=== PATIENT | female | born 1940 | race Caucasian/White ===

== ENCOUNTER 2019-07-29 22:49 | Inpatient (IN) | payer OTHER, MEDICAID ==
[~2019-07-29] VITALS: Ht 147.3 cm; Wt 83.6 kg
[~2019-07-29 22:49] MED LIST: ANTIVERT25 MG PO; APAP500 PO; BENICAR40 MG PO; CARVEDILOL25 MG PO; CLONIDINE0.1; DONEPEZIL HCL10 MG PO; Duoneb 2.5-0.5 Mg/3; FLONASE 0.05%50 MCG NASAL; ICAPS TABLET1 EACH PO; LASIX 20 MG TAB20 MG PO; LEVAQUIN 250 M250 MG PO; LEXAPRO20 MG PO; LIPITOR10 MG PO; LOPRESSOR50 PO; METOPROLOL SUCC25 M1 PO; NORVASC2.5 MG PO; OMEPRAZOLE40 MG; OMEPRAZOLE40 MG PO; PAXIL10 MG; PREDNISONE 10 M10 MG PO; PREDNISONE50 MG PO; PROTONIX 20 MG20 M1 PO; PROTONIX40 M1 PO; TESSALON PERLE100 MG PO; TRANSDERM-SCO1 PATC1 TD; TRAZODONE 150150 M1 PO; TRAZODONE HCL100 MG PO; XANAX1 MG PO; ZANTAC 150MG T150 MG PO
[2019-07-29 22:59] VITALS: BP 171/67
[2019-07-29 23:28] LABS: ABSOLUTE BASOPHILS 0.1 thou/uL (0.0-0.2); ABSOLUTE EOSINOPHILS 0.3 thou/uL (0.0-0.7); ABSOLUTE LYMPHOCYTES 2.9 thou/uL (0.8-5.3); ABSOLUTE MONOCYTES 1.1 thou/uL (0.0-1.2); BASOPHILS 0.5 %; EOSINOPHILS 2.5 %; HEMATOCRIT 34.2 % (37.0-47.0); HEMOGLOBIN 11.8 gm/dL (12.0-15.0); LYMPHOCYTES 28.1 %; MCH 33.2 pg (26.0-34.0); MCHC 34.6 g/dL (28.0-37.0); MCV 95.8 fL (80.0-100.0); MONOCYTES 10.5 %; NUCLEATED RBCS 0 /100WBC; PLATELET COUNT* 235 thou/uL (150-400); POLYS 58.4 %; RBC 3.57 mil/uL (4.20-5.00); WBC 10.3 thou/uL (4.0-11.0)
[2019-07-29 23:31] LABS: CALCIUM 8.7 mg/dL (8.5-10.1); CREATININE 1.2 mg/dL (0.6-1.3); POTASSIUM 3.3 mmol/L (3.5-5.1)
[2019-07-29 23:34] LABS: PROTIME 10.2 Seconds (9.20-11.50)
[2019-07-29 23:41] LABS: ALBUMIN 3.3 g/dL (3.4-5.0); TOTAL BILIRUBIN 0.2 mg/dL (<0.1-1.0); TOTAL PROTEIN 6.6 g/dL (6.4-8.2)
[2019-07-29 23:57] LABS: URINE BILIRUBIN NEGATIVE (Negative); URINE BLOOD NEGATIVE (Negative); URINE CLARITY CLEAR; URINE COLOR STRAW; URINE GLUCOSE-RANDOM NEGATIVE (Negative); URINE KETONES NEGATIVE (Negative); URINE LEUKOCYTES-REFLEX NEGATIVE (Negative); URINE NITRITE-REFLEX NEGATIVE (Negative); URINE PROTEIN NEGATIVE (Negative); URINE SPECIFIC GRAVITY <= 1.005 (1.005-1.030); URINE UROBILINOGEN 0.2 E.U./dl (0.2-1.0)
[2019-07-30 00:47] LABS: INFLUENZA A ANTIGEN Negative (Negative); INFLUENZA B ANTIGEN Negative (Negative)
[2019-07-30 03:16] VITALS: BP 142/57
[2019-07-30 04:00] VITALS: BP 142/58
[2019-07-30 07:51] VITALS: BP 133/59
--- NOTE | 2019-07-30 07:55 | NUR ---
PT RECIEVED FROM ED. ALERT AND ORIENTED X4. PASSED BEDSIDE SWALLOW TEST. DENIES PAIN AND SOB. CALL LIGHT WITHIN REACH AND BED IN LOW POSITION. HOURLY ROUNDING DONE FOR PT SAFETY.
[2019-07-30 08:00] VITALS: BP 133/59
[2019-07-30 11:06] LABS: CHOLESTEROL 132 mg/dL (<200); HDL CHOLESTEROL 66 mg/dL (>40); LDL CHOLESTEROL 57 mg/dL (<100); TRIGLYCERIDE 46 mg/dL (<150); VLDL 9 mg/dL (<40)
[2019-07-30 11:07] LABS: SERUM ASSESSMENT Clear
[2019-07-30 12:00] VITALS: BP 132/58
[2019-07-30] MEDS ORDERED: CALCIUM500 MG PO (14:39)
[2019-07-30] MEDS ORDERED: CELEXA 20 MG TA20 MG PO (14:40)
[2019-07-30] MEDS ORDERED: LORATIDINE 10 M10 M1 PO (14:42)
[2019-07-30] MEDS ORDERED: KLOR-CON M2020 MEQ PO (14:43)
[2019-07-30] MEDS ORDERED: SEROQUEL 100 M100 M1 PO (14:44)
[2019-07-30] MEDS ORDERED: SEROQUEL XR 30300 M1 PO (14:46)
[2019-07-30] MEDS ORDERED: PROCTOSOL-HC28.35 GM TOP (14:47)
[2019-07-30 16:00] VITALS: BP 129/68
--- NOTE | 2019-07-30 18:01 | NUR ---
ASSUMED PT CARE REPORT RECEIVED FROM NURSE PT IS AOX4. 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 CALL LIGHT AT REACH. MRI/AND LEG US DONE THIS AM. SEE CHART FOR RESULT. PT HAS NO COMPLAINT. PATIENT WENT FOR A WALK ON THR FLOOR HALLWAY ACCOMPANIED BY THIS NURSE. PT HAS USED THE RESTROOOM MULTIPLE TIMES THIS DAY. NO FURTHER COMPLAINT. CALL LIGHT AT REACH. WILL CONITNUE TO MONITOR
[2019-07-31] VITALS (7 sets, daily range): BP systolic 126–153; BP diastolic 58–66
[2019-07-31 04:09] LABS: GLYCOHEMOGLOBIN (HGB A1C) 5.5 % (4.8-5.6)
[2019-07-31 05:06] LABS: HEMATOCRIT 34.4 % (37.0-47.0); HEMOGLOBIN 11.9 gm/dL (12.0-15.0); MCH 33.2 pg (26.0-34.0); MCHC 34.5 g/dL (28.0-37.0); MCV 96.3 fL (80.0-100.0); MPV 7.8 fl. (7.2-11.1); RBC 3.58 mil/uL (4.20-5.00); RDW-CV 14.1 % (10.5-14.5); WBC 6.7 thou/uL (4.0-11.0)
[2019-07-31 05:27] LABS: ALBUMIN 2.9 g/dL (3.4-5.0); CALCIUM 8.7 mg/dL (8.5-10.1); CREATININE 1.3 mg/dL (0.6-1.3); MAGNESIUM 2.2 mg/dL (1.8-2.4); POTASSIUM 4.1 mmol/L (3.5-5.1); TOTAL BILIRUBIN 0.3 mg/dL (<0.1-1.0); TOTAL PROTEIN 6.1 g/dL (6.4-8.2)
--- NOTE | 2019-07-31 05:49 | NUR ---
PT CARE ASSUMED AT 1930. SAT MAINTAINED IN RA. ALERT AND ORIENTED X4 SEEMS FORGETFUL AT TIMES. CALL LIGHT WITHIN REACH AND BED IN LOW POSITION. C/O PAIN, MEDICATION GIVEN PER EMAR. HOURLY ROUNDING DONE FOR PT SAFETY.
--- NOTE | 2019-07-31 10:53 | NUR ---
MET WITH PT AND SPOKE WITH BECKYR/MILY OVER THE PHONE. PT LIVES IN ASSISTED LIVING AT [facility] IN [place]. SPOKE WITH JUANCARLOS THERE AND THEY WILL ACCEPT BACK. SHE STATED PT DOES WELL, AMBULATES WITHOUT DEVICE AND IS ABLE TO DO HER OWN ADLS. THEY WILL NEED REPORT CALLED AND A CHART COPY AT [place]. DTR AWARE PT MAY GO HOME SOON, SHE WILL TRANSPORT. PT STATES FEELING BACK TO HERSELF TODAY, DENIES NEEDS. DTR HAS WALKER PT CAN USE IF NEEDED MILY [phone] [facility] [phone]
[2019-07-31] MEDS ORDERED: ASPIRIN325 PO (12:31)
--- NOTE | 2019-07-31 12:49 | EKG ---
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: : 1940 Requested By: Kika Reed Order Number: [id number] MD: Sotero Wills Measurements Intervals [place] Rate: 67 P: 39 CO: 58 QRS: -9 QRSD: 112 T: 18 QT: 443 QTc: 468 Interpretive Statements Sinus rhythm Short CO interval Borderline intraventricular conduction delay Low voltage, precordial leads Abnormal R-wave progression, early transition Borderline T abnormalities, anterior leads Baseline wander in lead(s) V1,V4,V5 Compared to ECG 07/10/2016 12:36:40 Short CO interval now present Low QRS voltage now present T-wave abnormality now present Electronically Signed On 07-31-2019 12:48:58 [employer] by Sotero Wills [email or web address] <ELECTRONICALLY SIGNED> By: Sotero Wills MD, [facility] 07/31/19 1248 [id number] 225 Sotero Wills MD, [facility] /EPI
--- NOTE | 2019-07-31 13:40 | 2DMMODE ---
[place] [address] 2 D/M-MODE ECHOCARDIOGRAM Name: ZULMA BLAIR Room: [address] IN .R.#: [id number] Admission: 07/30/19 Attend Phys: Wang Carrillo, Discharge: Date of : 44 Date of Service: 07/31/19 1339 Report #: [id number] THIS REPORT FOR: //name// APPROVED REPORT Study performed: 07/31/2019 10:12:26 EXAM: Comprehensive 2D, Doppler, and color-flow Echocardiogram Patient Location: Bedside BSA: 1.73 HR: 70 bpm BP: 134/66 mmHg Other Information Study Quality: Fair Technically limited study due to body habitus. Indications Possible Stroke Echo Enhancing Agent Indication: Rule out Shunt Agent(s) / Amount(s) Used: Agitated Saline cc 2D Dimensions IVSd: 10.48 (7-11mm) LVOT Diam: 19.74 (18-24mm) LVDd: 40.01 mm PWd: 9.80 (7-11mm) Ascending Ao: 26.79 (22-36mm) LVDs: 25.88 (25-40mm) Aortic Root: 25.64 mm Volumes Left Atrial Volume (Systole) LA ESV Index: 18.40 mL/m2 Aortic Valve AoV Peak Samm.: 0.71 m/s AO Peak Gr.: 2.04 mmHg LVOT Max P.13 mmHg AO Mean Gr.: 1.31 mmHg LVOT Mean P.40 mmHg LVOT Max V: 0.73 m/s AO V2 VTI: 17.07 cm LVOT Mean V: 0.57 m/s ERI (VTI): 3.11 cm2 LVOT V1 VTI: 17.32 [place] [address] 2 D/M-MODE ECHOCARDIOGRAM Name: ZULMA BLAIR Room: [address] IN [facility].#: [id number] Admission: 07/30/19 Attend Phys: Wang Carrillo, Discharge: Date of : 44 Date of Service: 07/31/19 1339 Report #: [id number] E/A Ratio: 1.09 MV Decel. Time: 410.24 ms MV E Max Samm.: 0.51 m/s MV PHT: 118.97 ms MVA (PHT): 1.85 cm2 TDI E/Lateral E': 4.64 E/Medial E': 6.38 Medial E' Samm.: 0.08 m/s Lateral E' Samm.: 0.11 m/s Pulmonary Valve PV Peak Samm.: 0.68 m/s PV Peak Gr.: 1.84 mmHg Tricuspid Valve RAP Estimate: 5.00 mmHg TR Peak Gr.: 27.54 mmHg RVSP: 32.40 mmHg PA Pressure: 32.40 mmHg Left Ventricle The left ventricle is normal size. There is normal LV segmental wall motion. There is normal left ventricular wall thickness. Left ventricular systolic function is normal. The left ventricular ejection fraction is within the normal range. LVEF is 60-65%. Right Ventricle The right ventricle is normal size. The right ventricular systolic function is normal. Atria The left atrium size is normal. Injection of bubbles documented no interatrial shunt. The right atrium size is normal. Aortic Valve The aortic valve is normal in structure. Trace aortic regurgitation. There is no aortic valvular stenosis. Mitral Valve The mitral valve is normal in structure. Trace mitral regurgitation. No evidence of mitral valve stenosis. Tricuspid Valve The tricuspid valve is normal in structure. Trace tricuspid regurgitation. estimated pa pressure 35 mm [place] [address] 2 D/M-MODE ECHOCARDIOGRAM Name: ZULMA BLAIR Room: [address] IN [facility]#: [id number] Admission: 07/30/19 Attend Phys: Wang Carrillo, Discharge: Date of : 44 Date of Service: 07/31/19 1339 Report #: [id number] The pulmonary valve is normal in structure. There is no pulmonic valvular regurgitation. Great Vessels The aortic root is normal in size. IVC is normal in size and collapses >50% with inspiration. Pericardium There is no pericardial effusion. <Conclusion> LVEF is 60-65%. Injection of bubbles documented no interatrial shunt. Trace aortic regurgitation. <ELECTRONICALLY SIGNED> By: Sotero Wills MD, FACC 07/31/19 1339 1339 38 Sotero Wills MD, FACC /INF
--- NOTE | 2019-07-31 14:04 | NUR ---
ASSUMED PT CARE REPORT RECEIVED FROM NURSE PT IS AOX4. ON RA. SR ON [employer] ANALYST. HAD MRI AND ECHO DONE TODAY PRIOR TO DISCHARGE ORDER. THEN CARDIOLOGY WAS CALLED TO PLACE A HEART MONITOR BIOTEL BEFORE PT LEAVES HOSPITAL . BIOTEL MONITOR WAS PLACED AT 1400 BY CARDIOLOGY NURSE. PT NOW AWAITING FOR HER DAUGHTER TO RN ADMISSION. IV LINE REMOVED. HOSPITAL HEART MONITOR RETREIVED. NO FURTHER COMPLAINT. CALL LIGHT AT REACH. FALL PRECAUTION IN PLACE
--- NOTE | 2019-07-31 14:48 | NUR ---
DAUGHTER CAME AND RECEIVED INSTRUCTION ON BIOTEL ( HEART MORNITOR). DISCHARGE INSTRUCTION GIVEN TO PT AND DAUGHTER. REPORT CALLED TO [facility] AND GIVEN TO NURSE. DISCHARGE PAPER SENT WITH PT TO [facility]. PT LEFT FLOOR AT 1455 ACCOMPANIED BY VOLUNTEER ON WHEELCHAIR.
== END 2019-07-31 14:52 | DRG 69 ==
LOC: M.ERS 22:49 → M.2W 07-30 02:01 → M.TBA-ER 07-30 02:01 → M.2W 07-30 03:37
PROVIDERS: Emergency Medicine; Internal Medicine; ADMIT Internal Medicine
DX: G45.9 Transient cerebral ischemic attack, unspecified (principal); R47.01 Aphasia; M47.896 Other spondylosis, lumbar region; M48.061 Spinal stenosis, lumbar region without neurogenic claudication; I48.91 Unspecified atrial fibrillation; I10 Essential (primary) hypertension; I08.0 Rheumatic disorders of both mitral and aortic valves; K21.9 Gastro-esophageal reflux disease without esophagitis; F41.9 Anxiety disorder, unspecified; F32.9 Major depressive disorder, single episode, unspecified; F03.90 Unspecified dementia, unspecified severity, without behavioral disturbance, psychotic disturbance, mood disturbance, and anxiety; Z79.899 Other long term (current) drug therapy; Z88.0 Allergy status to penicillin; Z88.8 Allergy status to other drugs, medicaments and biological substances; Z82.49 Family history of ischemic heart disease and other diseases of the circulatory system; Z90.710 Acquired absence of both cervix and uterus; Z90.49 Acquired absence of other specified parts of digestive tract

== ENCOUNTER → 2021-02-10 | Outpatient (CLI) | payer OTHER, MEDICAID ==
[~2021-02-10] MED LIST changes: +ASPIRIN325 PO; +CALCIUM500 MG PO; +CELEXA 20 MG TA20 MG PO; +KLOR-CON M2020 MEQ PO; +LORATIDINE 10 M10 M1 PO; +PROCTOSOL-HC28.35 GM TOP; +SEROQUEL 100 M100 M1 PO; +SEROQUEL XR 30300 M1 PO
== END ==
LOC: M.RAD 02-03 13:30
PROVIDERS: ATTEND Family Medicine
DX: M81.0 Age-related osteoporosis without current pathological fracture (principal); M85.80 Other specified disorders of bone density and structure, unspecified site